=== PATIENT | male | born 1995 | race American Indian/Alaskan Native ===

== ENCOUNTER 2018-10-16 11:31 | Emergency (ER) | payer SELFPAY ==
[2018-10-16 11:36] VITALS: BP 106/63
--- NOTE | 2018-10-16 11:39 | Event Note ---
ED Screening Note Date of service: 10/16/18 Time: 11:36 ED Screening Note: 23 y/o male comes in c/o abd pain times 3-4 days. Admits to N/V no diarrhea. Goes by Margarita. This initial assessment/diagnostic orders/clinical plan/treatment(s) is/are subject to change based on patients health status, clinical progression and re- assessment by fellow clinical providers in the ED. Further treatment and workup at subsequent clinical providers discretion. Patient/guardian urged not to elope from the ED as their condition may be serious if not clinically assessed and managed. Initial orders include:
[2018-10-16] MEDS ORDERED: NACL 0.9% 1000 ML 1,000 ML IV ONE (11:45)
[2018-10-16] MEDS ORDERED: ZOFRAN IV ONE (11:45)
[2018-10-16] MEDS ORDERED: MORPHINE IV ONE (11:45)
[2018-10-16 11:57] LABS: Basophils # (Auto) 0.1 K/mm3 (0.0-0.1); Basophils % (Auto) 2.1 % (0.0-1.8); Eosinophils % (Auto) 0.7 % (0.0-4.3); Hematocrit 40.7 % (35.5-45.6); Hemoglobin 14.1 gm/dl (11.8-15.2); Lymphocytes # (Auto) 0.9 K/mm3 (1.2-5.4); Lymphocytes % (Auto) 17.3 % (13.4-35.0); Mean Corpuscular HGB Conc 35 % (32-34); Mean Corpuscular Hemoglobin 33 pg (28-32); Mean Corpuscular Volume 94 fl (84-94); Monocytes # (Auto) 0.7 K/mm3 (0.0-0.8); Monocytes % (Auto) 13.9 % (0.0-7.3); Platelet Count 165 K/mm3 (140-440); Red Blood Count 4.34 M/mm3 (3.65-5.03); Red Cell Distribution Width 12.7 % (13.2-15.2)
[2018-10-16 12:15] LABS: Bilirubin,Urine NEG (Negative); Blood,Urine NEG (Negative); Color,Urine Yellow (Yellow); Mucus,Urine FEW /HPF; Protein,Urine <15 mg/dL mg/dL (Negative); Urobilinogen,Urine < 2.0 mg/dL (<2.0)
[2018-10-16 12:23] LABS: Alanine Aminotransferase 641 units/L (7-56); BUN/Creatinine Ratio 14; Blood Urea Nitrogen 10 mg/dL (9-20); Calcium 8.8 mg/dL (8.4-10.2); Hemolysis Index 8; Lipase 16 units/L (13-60)
--- NOTE | 2018-10-16 13:55 | Emergency Department Report ---
ED Abdominal Pain HPI - General Chief Complaint: Abdominal Pain Stated Complaint: ABDOMINAL PAIN Time Seen by Provider: 10/16/18 11:44 Source: patient Mode of arrival: Ambulatory Limitations: No Limitations - History of Present Illness Initial Comments: This is a 23-year-old male nontoxic, well nourished in appearance, no acute signs of distress presents to the ED with c/o of nausea and vomiting and abdominal pain 1 week. Patient describes vomiting as food content and yellow gastric acid. Patient describes abdominal pain as cramping and aching with level of 8/10 diffuse. Patient denies chest pain, short of breath, fever, chills, headache, stiff neck, numbness or tingling. Patient denies any diarrhea or constipation. Patient denies any recent travels. Patient stated he is on a hormonal therapy from [place] that is not FDA approved. Patient denies name of the hormonal therapy. Patient denies any allergies to significant past medical history. MD Complaint: abdominal pain -: week(s) (1) Location: diffuse Radiation: none Migration to: no migration Severity: moderate Severity scale (0 -10): 8 Quality: cramping, aching Consistency: constant Improves With: nothing Worsens With: nothing Associated Symptoms: nausea, vomiting. denies: diarrhea, fever, chills, constipation, dysuria, hematemesis, hematochezia, melena, hematuria, anorexia, syncope - Related Data Previous Rx's Medication Instructions Recorded Last Taken Type Ondansetron [Zofran Odt] 4 mg PO Q8HR PRN #20 tab.rapdis 10/16/18 Unknown Rx Allergies Allergy/AdvReac Type Severity Reaction Status Date / Time No Known Allergies Allergy Verified 10/16/18 11:36 ED Review of Systems ROS: Stated complaint: ABDOMINAL PAIN Other details as noted in HPI Constitutional: denies: chills, fever Eyes: denies: eye pain, eye discharge, vision change ENT: denies: ear pain, throat pain Respiratory: denies: cough, shortness of breath, wheezing Cardiovascular: denies: chest pain, palpitations Endocrine: no symptoms reported Gastrointestinal: abdominal pain, nausea, vomiting. denies: diarrhea Genitourinary: denies: urgency, dysuria Musculoskeletal: denies: back pain, joint swelling, arthralgia Skin: denies: rash, lesions Neurological: denies: headache, weakness, paresthesias Psychiatric: denies: anxiety, depression Hematological/Lymphatic: denies: easy bleeding, easy bruising ED Past Medical Hx - Past Medical History Previous Medical History?: No - Surgical History Past Surgical History?: No - Social History Smoking Status: Never Smoker Substance Use Type: None - Medications Home Medications: Home Medications Medication Instructions Recorded Confirmed Last Taken Type Ondansetron [Zofran Odt] 4 mg PO Q8HR PRN #20 tab.rapdis 10/16/18 Unknown Rx ED Physical Exam - General Limitations: No Limitations General appearance: alert, in no apparent distress - Head Head exam: Present: atraumatic, normocephalic - Neck Neck exam: Present: normal inspection, full ROM. Absent: tenderness, meningismus, lymphadenopathy - Respiratory Respiratory exam: Present: normal lung sounds bilaterally. Absent: respiratory distress, wheezes, rales, rhonchi, stridor, chest wall tenderness, accessory muscle use, decreased breath sounds, prolonged expiratory - Cardiovascular Cardiovascular Exam: Present: regular rate, normal rhythm, normal heart sounds. Absent: bradycardia, tachycardia, irregular rhythm, systolic murmur, diastolic murmur, rubs, gallop - GI/Abdominal GI/Abdominal exam: Present: soft, tenderness (diffuse), normal bowel sounds. Absent: distended, guarding, rebound, rigid, diminished bowel sounds - Expanded GI/Abdominal Exam Expanded GI/Abdominal exam: Absent: psoas sign, Fay's sign, Rovsing's sign, tenderness at Mcburney's Point, ascites - Extremities Exam Extremities exam: Present: normal inspection, full ROM, normal capillary refill. Absent: tenderness - Back Exam Back exam: Present: normal inspection, full ROM. Absent: tenderness, CVA tenderness (R), CVA tenderness (L), muscle spasm, paraspinal tenderness, vertebral tenderness, rash noted - Neurological Exam Neurological exam: Present: alert, oriented X3, normal gait - Psychiatric Psychiatric exam: Present: normal affect, normal mood - Skin Skin exam: Present: warm, dry, intact, normal color. Absent: rash ED Course Vital Signs 10/16/18 10/16/18 10/16/18 11:35 12:33 13:03 Temperature 98.5 F Pulse Rate 80 Respiratory 18 18 18 Rate Blood Pressure 106/63 O2 Sat by Pulse 99 Oximetry - Reevaluation(s) Reevaluation #1: 10/16/18 13:56 Patient is speaking in full sentences with no signs of distress noted. - Consultations Consultation #1: 10/16/18 13:56 Patient has been consulted with Janene Jovel about patient history, physical exam, and labs and agrees to consult with Dr. Lawton (hospitalist) for possible admission due to acute hepatitis. CT scan is currently pending. Consultation #2: 10/16/18 15:31 Patient has been consulted with Dr. Lawton (hospitalist) about patient history, physical exam, and labs/CT results and stated patient can be discharged with follow-up. Patient was also discussed with Dr. Goodman which agrees to the ED plan of care with discharge instructions. ED Medical Decision Making - Lab Data Result diagrams: 10/16/18 11:43 10/16/18 11:43 - Medical Decision Making This is a 23-year-old male that presents with nausea and vomiting with abdominal pain and positive hepatitis A. Patient is stable and was examined by me. There is no abdominal tenderness. Negative signs of symptoms of appendicitis. Labs obtained. UA obtained. CT of abdomen obtained and dictated by the radiologist. Patient is notified of the report with no questions noted by the patient. Vital signs are stable prior to discharge. Patient received medical treatment in the ED which patient stated symptoms has resovled and subsided. Was instructed note to operate any machinery due to possible drowsiness and stated someone will drive the patient home. A by mouth challenge has been obtained and patient tolerated well with no nausea vomiting. Patient was consulted with Dr. Goodman and Dr. Lawton. Patient was also instructed to Follow-up with a primary care doctor in 3-5 days or if symptoms worsen and continue return to emergency room as soon as possible. At time of discharge, the patient does not seem toxic or ill in appearance. No acute signs of distress noted. Patient agrees to dischar ge treatment plan of care. No further questions noted by the patient. Critical care attestation.: If time is entered above; I have spent that time in minutes in the direct care of this critically ill patient, excluding procedure time. ED Disposition Clinical Impression: Nausea vomiting and diarrhea Abdominal pain Qualifiers: Abdominal location: generalized Qualified Code(s): R10.84 - Generalized abdominal pain Hepatitis A Qualifiers: Hepatic coma status: without hepatic coma Qualified Code(s): B15.9 - Hepatitis A without hepatic coma Disposition: - TO HOME OR SELFCARE Is pt being admited?: No Does the pt Need Aspirin: No Condition: Stable Instructions: Acute Nausea and Vomiting (ED), Abdominal Pain (ED), Viral Hepatitis A (ED) Additional Instructions: Follow-up with a primary care and supervisor grower doctor in 2-3 days or if symptoms worsen and continue return to emergency room as soon as possible. Increased rest, hydration, and take Motrin/Tylenol as prescribed for fever episode. Prescriptions: Ondansetron [Zofran Odt] 4 mg PO Q8HR PRN #20 tab.rapdis PRN Reason: Nausea Referrals: [place] SHELBY VILLANUEVA MD [Primary Care Provider] - 3-5 Days PRIMARY MD DEREK [Referring] - 3-5 Days RAMON PARK MD [Staff Physician] - 3-5 Days [facility] [Outside] - 3-5 Days [facility] [Outside] - 3-5 Days Forms: Work/School Release Form(ED)
[2018-10-16 14:50] LABS: Hepatitis A Antibody IgM Reactive (NonReactive); Hepatitis B Core IgM Non-Reactive (NonReactive); Hepatitis C Virus Antibody Non-Reactive (NonReactive)
--- NOTE | 2018-10-16 14:53 | Cat Scan Report ---
CT of the abdomen and pelvis with contrast INDICATION: Mid abdominal pain x4 days COMPARISON: None FINDINGS: The lung bases are clear. The liver, spleen, pancreas, adrenal glands and kidneys show no a bnormalities. No definite gallbladder or biliary tree abnormality. No fluid or adenopathy in the uppe r abdomen. No gastric wall thickening. CT of the pelvis shows a normal appendix. There is minimal free pelvic fluid. No diverticulosis or di verticulitis. No colitis or enteritis. Prostate is not enlarged. No pelvic or inguinal adenopathy. No significant skeletal lesion. IMPRESSION: Minimal pelvic fluid. Otherwise negative study. Automated exposure control was utilized to diminish radiation dose. Signer Name: Channing Fowler MD Signed: 10/16/2018 2:49 PM Workstation Name: [id number]
[2018-10-16 15:13] LABS: Hepatitis B Surface Antigen Non-Reactive (Negative)
== END 2018-10-16 15:55 | disposition home or self-care (01) ==
LOC: ED 11:31
DX: B15.9 Hepatitis A without hepatic coma (principal); Z91.011 Allergy to milk products
CPT/HCPCS: 36415; 74177; 80053; 80074; 81001; 83690; 85025; 96361; 96374; 96375; 99284; J2270; J2405; J7030; Q9967

== ENCOUNTER 2018-10-18 17:07 | Inpatient (IN) | payer OTHER ==
[2018-10-18 18:07] LABS: Basophils % (Auto) 0.4 % (0.0-1.8); Hematocrit 43.2 % (35.5-45.6); Hemoglobin 15.2 gm/dl (11.8-15.2); Lymphocytes # (Auto) 1.3 K/mm3 (1.2-5.4); Lymphocytes % (Auto) 18.9 % (13.4-35.0); Mean Corpuscular HGB Conc 35 % (32-34); Mean Corpuscular Volume 92 fl (84-94); Monocytes % (Auto) 14.5 % (0.0-7.3); Platelet Count 187 K/mm3 (140-440); Red Blood Count 4.72 M/mm3 (3.65-5.03)
[2018-10-18 18:21] LABS: Albumin 4.4 g/dL (3.9-5); BUN/Creatinine Ratio 23; Bilirubin,Direct 2.2 mg/dL (0-0.2); Blood Urea Nitrogen 14 mg/dL (9-20); Calcium 9.1 mg/dL (8.4-10.2); Hemolysis Index 4
[2018-10-18] MEDS ORDERED: ZOFRAN IV ONE (18:22)
[2018-10-18] MEDS ORDERED: NACL 0.9% 1000 ML 1,000 ML IV ONE ×3 (18:22→22:50)
[2018-10-18 18:38] LABS: Bilirubin,Urine SM (Negative); Blood,Urine NEG (Negative); Color,Urine Amber (Yellow); Mucus,Urine 3+ /HPF
[2018-10-18 18:43] LABS: Alanine Aminotransferase 6764 units/L (7-56)
[2018-10-18 18:50] LABS: Ictotest,Urine Negative (Negative)
--- NOTE | 2018-10-18 19:43 | Emergency Department Report ---
HPI - General Chief Complaint: Nausea/Vomiting/Diarrhea Time Seen by Provider: 10/18/18 18:21 - HPI HPI: Mr Contreras is a 23-year-old male who was seen here 2 days ago with right upper quadrant pain. He was discharged with a new diagnosis of hepatitis A and instructed to follow-up. However, the patient's symptoms of cotton worse over the last 2 days and he is presented back to the ER. He is complaining of right upper quadrant pain, nausea and vomiting, and bloody vomitus. On admission patient was tachycardic with a heart rate of 102. Patient was actively vomiting. PMH hep A - just diagnosed 2 days ago prior to this a healthy child; UTD on immunizations HIV negative approx 3 months ago PSH none Current Medications none- denies hormone treatment; however, review of EMR reveals he told prior MD he was taking hormones from [place] was given prn zofran on dc Social Lives in [place] with partner. From [place]. Homosexual. drugs- denies alcohol- denies tobacco- denies Mother and father are alive and well and live in [place] ED Past Medical Hx - Past Medical History Previous Medical History?: Yes Additional medical history: hep a - Surgical History Past Surgical History?: No - Family History Family history: no significant - Social History Smoking Status: Never Smoker Substance Use Type: None - Medications Home Medications: Home Medications Medication Instructions Recorded Confirmed Last Taken Type Ondansetron [Zofran Odt] 4 mg PO Q8HR PRN #20 tab.rapdis 10/16/18 Unknown Rx ED Review of Systems ROS: Stated complaint: VOMITING/HEP A/DEHYDRATED Other details as noted in HPI Comment: All other systems reviewed and negative Gastrointestinal: as per HPI, abdominal pain, nausea, vomiting Physical Exam - Physical Exam Vital Signs: Vital Signs 10/18/18 17:21 Temperature 97.9 F Pulse Rate 102 H Respiratory 18 Rate Blood Pressure 114/66 O2 Sat by Pulse 96 Oximetry Physical Exam: born male and identifies as female alert and oriented no focal def S1S2 no murmur or rub lungs diminished bilateral bases liver palpable; firm to palpation no jaundice on exam; pt states urine is "funny color" no edema DP plus 2 bilateral ED Course Vital Signs 10/18/18 17:21 Temperature 97.9 F Pulse Rate 102 H Respiratory 18 Rate Blood Pressure 114/66 O2 Sat by Pulse 96 Oximetry ED Medical Decision Making - Lab Data Result diagrams: 10/18/18 17:25 10/18/18 17:25 - Radiology Data Radiology results: report reviewed, image reviewed - Medical Decision Making Labs 10/18/18 10/18/18 10/18/18 17:25 17:25 18:00 WBC 7.1 RBC 4.72 Hgb 15.2 Hct 43.2 MCV 92 MCH 32 MCHC 35 H RDW 13.0 L Plt Count 187 Lymph % (Auto) 18.9 [place] % (Auto) 14.5 H Eos % (Auto) 0.0 Baso % (Auto) 0.4 Lymph # 1.3 [place] # 1.0 H Eos # 0.0 Baso # 0.0 Seg Neutrophils % 66.2 Seg Neutrophils # 4.7 PT INR APTT Sodium 138 Potassium 3.5 L Chloride 99.0 Carbon Dioxide 22 Anion Gap 21 BUN 14 Creatinine 0.6 L Estimated GFR > 60 BUN/Creatinine Ratio 23 Glucose 107 H Calcium 9.1 Total Bilirubin 2.90 H Direct Bilirubin 2.2 H Indirect Bilirubin 0.7 AST 6160 H ALT 6764 H Alkaline Phosphatase 111 Ammonia Total Protein 7.7 Albumin 4.4 Albumin/Globulin Ratio 1.3 Lipase 17 HCG, Quant Urine Color Negar Urine Turbidity Slightly-cloudy Urine pH 6.0 Ur Specific [place] 1.021 Urine Protein 100 mg/dl Urine Glucose (UA) Neg Urine Ketones 20 Urine Blood Neg Urine Nitrite Neg Urine Bilirubin Sm Urine Ictotest Negative Urine Urobilinogen 4.0 Ur Leukocyte Esterase Neg Urine WBC (Auto) 2.0 Urine RBC (Auto) 2.0 U Epithel Cells (Auto) 10.0 Urine Mucus 3+ 10/18/18 10/18/18 10/18/18 20:25 20:25 20:25 WBC RBC Hgb Hct MCV MCH MCHC RDW Plt Count Lymph % (Auto) [place] % (Auto) Eos % (Auto) Baso % (Auto) Lymph # [place] # Eos # Baso # Seg Neutrophils % Seg Neutrophils # PT 23.1 H INR 2.10 H APTT 28.4 Sodium Potassium Chloride Carbon Dioxide Anion Gap BUN Creatinine Estimated GFR BUN/Creatinine Ratio Glucose Calcium Total Bilirubin Direct Bilirubin Indirect Bilirubin AST ALT Alkaline Phosphatase Ammonia 46.0 Total Protein Albumin Albumin/Globulin Ratio Lipase HCG, Quant < 2 H Urine Color Urine Turbidity Urine pH Ur Specific [place] Urine Protein Urine Glucose (UA) Urine Ketones Urine Blood Urine Nitrite Urine Bilirubin Urine Ictotest Urine Urobilinogen Ur Leukocyte Esterase Urine WBC (Auto) Urine RBC (Auto) U Epithel Cells (Auto) Urine Mucus Vital Signs 10/18/18 17:21 Temperature 97.9 F Pulse Rate 102 H Respiratory 18 Rate Blood Pressure 114/66 O2 Sat by Pulse 96 Oximetry labs noted- inc LFTs in 48 hours ua noted given 2L NS, riki has been actively vomiting Dr Mcdermott aware of pt presentation 2139 CT noted [address] Elam- she requested I call ID. ID paged [id number] DR ELAM CALLED ER. WANTS GI CALLED FOR EVAL. 2049 DISCUSSED WITH GI- Dr Hargrove- they will follow pt in AM DISCUSSED WITH ID- Dr Linton- will follow in AM [employer] P[facility] 0 [place] has returned call Dr Hernandez, hepatatology will evaluate the patient. There is no emergent need for transfer; but pt will be transferred when a bed becomes available in Surgical ICU. The attending will be Dr Soraya Sterling. [place] transfer service will call [facility] ICU in AM to update on bed availability. [place] Transfer center Cherelle Watson [phone]. [address] Elam updated- pt to be admitted here with eventual transfer; no definitive time a bed will become available 0045 Pt continue to have nausea and vomiting 0.25 IV haldol given. Pt has been updated on plan of care. awaiting inpatient orders from Dr Elam 0050 UDS pending- note sent p Morphine given for pain - Differential Diagnosis hep A ro liver failure Critical care attestation.: If time is entered above; I have spent that time in minutes in the direct care of this critically ill patient, excluding procedure time. ED Disposition Clinical Impression: Hepatitis A, Nausea vomiting and diarrhea, Abdominal pain Disposition: 09 OP ADMIT IP TO THIS HOSP Is pt being admited?: Yes Condition: Serious Time of Disposition: 21:41
[2018-10-18] MEDS ORDERED: MORPHINE IV ONE (20:20)
[2018-10-18 21:07] LABS: INR 2.1 (0.87-1.13)
[2018-10-18 21:08] LABS: Partial Thromboplastin Time 28.4 Sec. (24.2-36.6)
[2018-10-18] MEDS ORDERED: ZOFRAN ONE (21:08)
--- NOTE | 2018-10-18 21:59 | Cat Scan Report ---
CT ABDOMEN AND PELVIS WITH CONTRAST HISTORY: Right-sided abdominal pain. COMPARISON: None TECHNIQUE: Routine abdominal and pelvic CT exam performed following intravenous contrast administrat ion.. The patient received 1 cc of IV Omnipaque [address] scans at this location are performed using CT dose reduction for ALARA by means of automated exposure control. FINDINGS: CT ABDOMEN: Lung Bases: No significant abnormality. Liver: No significant abnormality. Biliary: No significant abnormality. Spleen: No significant abnormality. Unenlarged. Pancreas: No significant abnormality. Adrenals: No significant abnormality. Kidneys: No significant abnormality. Lymphatics: No lymphadenopathy. Vasculature: No significant abnormality. Bowel/Peritoneum: Nonobstructive bowel. Sigmoid diverticulosis without mesocolonic fat stranding. No free air. No free fluid. Normal appendix. CT PELVIC: : No significant abnormality. Lymphatics: No lymphadenopathy. Osseous Structures: No aggressive appearing osseous lesions. Additional Findings: None IMPRESSION: 1. No acute findings. The appendix is normal. 2. Sigmoid diverticulosis without evidence of diverticulitis. Signer Name: Stiven Rock MD Signed: 10/18/2018 9:55 PM Workstation Name: [id number]
[2018-10-19] MEDS ORDERED: HALDOL IV ONE (00:36)
[2018-10-19 01:04] LABS: Amphetamine Screen,Urine PRESUMPTIVE NEGATIVE; Benzodiazepines Screen,Urine PRESUMPTIVE NEGATIVE; Methadone Screen,Urine PRESUMPTIVE NEGATIVE
[2018-10-19 01:16] LABS: Cannabinoid Screen,Urine PRESUMPTIVE POSITIVE; Cocaine Screen,Urine PRESUMPTIVE POSITIVE; Opiate Screen,Urine PRESUMPTIVE POSITIVE
[2018-10-19] MEDS ORDERED: SODIUM CHLORIDE FLUSH SYRINGE 10 ML IV PRN (01:18)
[2018-10-19] MEDS ORDERED: MORPHINE IV PRN ×2 (01:18→02:44)
[2018-10-19] MEDS ORDERED: ZOFRAN IV PRN (01:18)
[2018-10-19] MEDS ORDERED: TYLENOL PO PRN (01:18)
--- NOTE | 2018-10-19 01:23 | History and Physical Report ---
History of Present Illness History of present illness: 23 year old trans-gender comes to the ER with complaints of RUQ pain that started 3 days ago, sharp, intermittent, no radiation , intensity 5/10, cannot identify exacerbating or relieving factors. Admits to multiple episodes of nausea, vomiting, unable to tolerate oral intake. On HRT, estradiol and aldactone Review of systems Constitutional: no weight loss, chills, fever Ears, eyes, nose, mouth and throat: no nasal congestion, no nasal discharge, no sinus pressure, no vision change, no red eye. Neck: No neck pain or rigidity. Cardiovascular: no palpitations, chest pain Respiratory: no cough, SOB Gastrointestinal: no hematochezia Genitourinary : no frequency , no hematuria Musculoskeletal: no joint swelling or muscle ache Integumentary: no rash, no pruritis Neurological: no parathesias, no focal weakness Endocrine: no cold or heat intolerance, no polyuria or polydipsia Hematologic/Lymphatic: no easy bruising, no easy bleeding, no gland swelling Allergic/Immunologic: no urticaria, no angioedema. PAST MEDICAL HISTORY: None PAST SURGICAL HISTORY:None SOCIAL HISTORY: no alcohol, drugs , tobacco FAMILY HISTORY: Hypertension Medications and Allergies Allergies Allergy/AdvReac Type Severity Reaction Status Date / Time milk Allergy Unknown Verified 10/18/18 17:20 Home Medications Medication Instructions Recorded Confirmed Last Taken Type Ondansetron [Zofran ODT TAB] 4 mg PO Q8HR PRN #20 tab.rapdis 10/16/18 Unknown Rx Pantoprazole [Protonix INJ] 40 mg IV BID vial 10/19/18 Unknown Rx Active Meds: Active Medications Acetaminophen (Tylenol) 650 mg PO Q4H PRN PRN Reason: Pain MILD(1-3)/Fever >100.5/FINK Sodium Chloride (Nacl 0.9% 1000 Ml) 1,000 mls @ 100 mls/hr IV BOLUS ONE Stop: 10/19/18 08:49 Last Admin: 10/19/18 01:02 Dose: 100 mls/hr Documented by: Ondansetron HCl (Zofran) 4 mg IV Q8H PRN PRN Reason: Nausea And Vomiting Sodium Chloride (Sodium Chloride Flush Syringe 10 Ml) 10 ml IV BID GWEN Exam - Physical Exam Narrative exam: General Apperance: The patient lying in bed, breathing comfortable HEENT: Normocephalic, atraumatic. Pupils equally round and reactive to light, EOMI, no sclericterus or JVD or thyromegaly or nodule. , no carotid bruit, mucous membranes moist, no exudate or erythema Chest: S1-S2, regular is rhythm, + breast Lungs: Clear bilaterally, breathing comfortable Abdomen: Positive bowel sounds, soft, non tender nondistended, no organomegaly Extremities no edema, no cyanosis clubbing, Skin: no rash, nodule, warm and dry Neuro: cranial nerves 2-12 intact, speech is fluent, motor/sensory intact - Constitutional Vitals: Temp Pulse Resp BP Pulse Ox 97.9 F 59 L 18 122/54 99 10/18/18 17:21 10/18/18 22:16 10/18/18 22:16 10/18/18 22:16 10/18/18 22:16 Results - Labs CBC & Chem 7: 10/19/18 04:11 10/19/18 07:48 Labs: Abnormal lab results 10/18/18 10/18/18 10/18/18 Range/Units 17:25 17:25 20:25 MCHC 35 H (32-34) % RDW 13.0 L (13.2-15.2) % [place] % (Auto) 14.5 H (0.0-7.3) % [place] # 1.0 H (0.0-0.8) K/mm3 PT 23.1 H (12.2-14.9) Sec. INR 2.10 H (0.87-1.13) Potassium 3.5 L (3.6-5.0) mmol/L Creatinine 0.6 L (0.8-1.5) mg/dL Glucose 107 H (75-100) mg/dL Total Bilirubin 2.90 H (0.1-1.2) mg/dL Direct Bilirubin 2.2 H (0-0.2) mg/dL AST 6160 H (5-40) units/L ALT 6764 H (7-56) units/L HCG, Quant (0-1) mIU/mL 10/18/18 Range/Units 20:25 MCHC (32-34) % RDW (13.2-15.2) % [place] % (Auto) (0.0-7.3) % [place] # (0.0-0.8) K/mm3 PT (12.2-14.9) Sec. 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
[2018-10-19] MEDS ORDERED: NACL 0.9% 1000 ML 1,000 ML IV SCH (02:00)
[2018-10-19] MEDS ORDERED: D50W (25GM) Syringe IV PRN (02:45)
[2018-10-19] MEDS: PROTONIX IV SCH ×2 (02:55→11:30)
[2018-10-19 05:01] LABS: Basophils % (Auto) 0.5 % (0.0-1.8); Hematocrit 40.5 % (35.5-45.6); Hemoglobin 13.8 gm/dl (11.8-15.2); Lymphocytes # (Auto) 1.2 K/mm3 (1.2-5.4); Lymphocytes % (Auto) 19.4 % (13.4-35.0); Mean Corpuscular HGB Conc 34 % (32-34); Mean Corpuscular Volume 95 fl (84-94); Monocytes # (Auto) 0.8 K/mm3 (0.0-0.8); Monocytes % (Auto) 13.5 % (0.0-7.3); Platelet Count 147 K/mm3 (140-440); Red Blood Count 4.28 M/mm3 (3.65-5.03); Red Cell Distribution Width 12.9 % (13.2-15.2)
[2018-10-19 05:08] LABS: INR 2.02 (0.87-1.13)
[2018-10-19 05:21] LABS: Albumin 3.7 g/dL (3.9-5); BUN/Creatinine Ratio 24; Blood Urea Nitrogen 12 mg/dL (9-20); Calcium 8.2 mg/dL (8.4-10.2); Hemolysis Index 5
[2018-10-19 05:34] LABS: Alanine Aminotransferase 5354 units/L (7-56)
[2018-10-19 05:46] LABS: Partial Thromboplastin Time 28.9 Sec. (24.2-36.6)
[2018-10-19 08:16] LABS: INR 2.08 (0.87-1.13); Partial Thromboplastin Time 29.7 Sec. (24.2-36.6)
[2018-10-19 08:33] LABS: Albumin 3.4 g/dL (3.9-5); BUN/Creatinine Ratio 28; Blood Urea Nitrogen 11 mg/dL (9-20); Calcium 8.1 mg/dL (8.4-10.2); Hemolysis Index 12
[2018-10-19 08:46] LABS: Alanine Aminotransferase 5114 units/L (7-56)
[2018-10-19] MEDS ORDERED: SODIUM CHLORIDE FLUSH SYRINGE 10 ML IV SCH (10:00)
[2018-10-19] MEDS ORDERED: VITAMIN K (ADULT ONLY) SUB-Q SCH (10:00)
--- NOTE | 2018-10-19 10:14 | Discharge Summary ---
Providers - Providers Date of Admission: 10/19/18 01:18 Date of discharge: 10/19/18 Attending physician: KIERSTEN CLAROS 10/19/18 00:53 Consult to Physician [CONS] Stat Comment: notified by Kiera in ER Consulting Provider: GHASSAN PALM Physician Instructions: Reason For Exam: abdominal pain 10/19/18 00:54 Consult to Physician [CONS] Stat Comment: Kiera notified in ER Consulting Provider: NISA HERNÁNDEZ Physician Instructions: Reason For Exam: Hep A 10/19/18 01:18 Consult to Physician [CONS] Routine Comment: Consulting Provider: PEMA SUAREZ Physician Instructions: Reason For Exam: cc Primary care physician: [facility], Hospitalization Reason for admission: abdominal pain Condition: Serious Pertinent studies: CT abdomen/pelvis Hospital course: 23 year old trans-gender female comes to the ER with complaints of RUQ pain that started 3 days ago, sharp, intermittent, no radiation , intensity 5/10, cannot identify exacerbating or relieving factors. Admits to multiple episodes of nausea, vomiting, unable to tolerate oral intake. On HRT, estradiol and aldactone. Admitted to ICU, monitored clinically with supportive care. Initiated transfer to [facility] and was accepted. She was transferred to [facility] in stable condition. 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 Pupils equally round and reactive to light, EOMI, no sclericterus or JVD or thyromegaly or nodule. , no carotid bruit, mucous membranes moist, no exudate or erythema Chest: S1-S2, regular is rhythm, + breast Lungs: Clear bilaterally, breathing comfortable Abdomen: Positive bowel sounds, soft, nondistended, no organomegaly Extremities no edema, no cyanosis clubbing, Skin: no rash, nodule, warm and dry Neuro: cranial nerves 2-12 intact, speech is fluent, motor/sensory intact - Constitutional Vitals: Temp Pulse Resp BP Pulse Ox 98.6 F 57 L 18 94/55 98 10/19/18 04:00 10/19/18 09:00 10/19/18 09:00 10/19/18 09:00 10/19/18 09:00 Plan Activity: other (bedrest) Weight Bearing Status: Non-Weight Bearing Diet: regular Follow up with: SHELBY LATIF MD [Primary Care Provider] - 7 Days
--- NOTE | 2018-10-19 10:44 | Gastroenterology Consultation ---
History of Present Illness - Reason for Consult Consult date: 10/19/18 Acute HepA Requesting physician: DEBORAH WHALEN - History of Present Illness 23 year old who identifies as female returns to the ER with complaints of RUQ pain that started 3 days ago, sharp, intermittent, no radiation , intensity 5/10, cannot identify exacerbating or relieving factors. Admits to multiple episodes of nausea, vomiting, unable to tolerate oral intake. Therefore came back to the ER Lives with boyfriend with whom the patient is sexually active, there is an additional roommate as well No foreign travel Social history - denies IVDU PAST MEDICAL HISTORY: None PAST SURGICAL HISTORY:None SOCIAL HISTORY: no alcohol, drugs , tobacco FAMILY HISTORY: Hypertension Medications and Allergies Allergies Allergy/AdvReac Type Severity Reaction Status Date / Time milk Allergy Unknown Verified 10/18/18 17:20 Home Medications Medication Instructions Recorded Confirmed Last Taken Type Ondansetron [Zofran ODT TAB] 4 mg PO Q8HR PRN #20 tab.rapdis 10/16/18 Unknown Rx Pantoprazole [Protonix INJ] 40 mg IV BID vial 10/19/18 Unknown Rx Active Meds: Active Medications Acetaminophen (Tylenol) 650 mg PO Q4H PRN PRN Reason: Pain MILD(1-3)/Fever >100.5/FINK Dextrose (D50w (25gm) Syringe) 50 ml IV PRN PRN PRN Reason: Hypoglycemia Sodium Chloride (Nacl 0.9% 1000 Ml) 1,000 mls @ 100 mls/hr IV DIRECT GWEN Morphine Sulfate (Morphine) 1 mg IV Q6H PRN PRN Reason: Pain, Moderate (4-6) Last Admin: 10/19/18 07:48 Dose: 1 mg Documented by: Ondansetron HCl (Zofran) 4 mg IV Q8H PRN PRN Reason: Nausea And Vomiting Last Admin: 10/19/18 05:14 Dose: 4 mg Documented by: Pantoprazole Sodium (Protonix) 40 mg IV BID GWEN Last Admin: 10/19/18 02:55 Dose: 40 mg Documented by: Phytonadione (Vitamin K (Adult Only)) 5 mg SUB-Q DAILY GWEN Sodium Chloride (Sodium Chloride Flush Syringe 10 Ml) 10 ml IV BID GWEN Sodium Chloride (Sodium Chloride Flush Syringe 10 Ml) 10 ml IV PRN PRN PRN Reason: LINE FLUSH Review of Systems - Review of Systems Constitutional: anorexia, fatigue, weakness, poor appetite Gastrointestinal: nausea, vomiting Exam - Constitutional Vital Signs: Temp Pulse Resp BP Pulse Ox 98.6 F 57 L 18 94/55 98 10/19/18 04:00 10/19/18 09:00 10/19/18 09:00 10/19/18 09:00 10/19/18 09:00 General appearance: no acute distress - EENT Eyes: scleral icterus - Neck Neck: normal ROM - Respiratory Respiratory effort: normal Respiratory: bilateral: CTA - Cardiovascular Rhythm: regular - Gastrointestinal General gastrointestinal: Present: soft, tender - Integumentary Integumentary: Present: dry - Musculoskeletal Musculoskeletal: normal - Neurologic Neurological: alert and oriented x3 - Psychiatric Psychiatric: depressed - Labs CBC & Chem 7: 10/19/18 04:11 10/19/18 07:48 Lab Results: Laboratory Results - last 24 hr 10/18/18 10/18/18 10/18/18 00:37 00:37 17:25 WBC 7.1 RBC 4.72 Hgb 15.2 Hct 43.2 MCV 92 MCH 32 MCHC 35 H RDW 13.0 L Plt Count 187 Lymph % (Auto) 18.9 [place]les % (Auto) 14.5 H Eos % (Auto) 0.0 Baso % (Auto) 0.4 Lymph # 1.3 Nobles # 1.0 H Eos # 0.0 Baso # 0.0 Seg Neutrophils % 66.2 Seg Neutrophils # 4.7 PT INR APTT Sodium Potassium Chloride Carbon Dioxide Anion Gap BUN Creatinine Estimated GFR BUN/Creatinine Ratio Glucose POC Glucose Calcium Total Bilirubin Direct Bilirubin Indirect Bilirubin AST ALT Alkaline Phosphatase Ammonia Total Protein Albumin Albumin/Globulin Ratio Lipase HCG, Quant Urine Color Negar Urine Turbidity Slightly-cloudy Urine pH 6.0 Ur Specific [place] 1.021 Urine Protein 100 mg/dl Urine Glucose (UA) Neg Urine Ketones 20 Urine Blood Neg Urine Nitrite Neg Urine Bilirubin Sm Urine Ictotest Negative Urine Urobilinogen 4.0 Ur Leukocyte Esterase Neg Urine WBC (Auto) 2.0 Urine RBC (Auto) 2.0 U Epithel Cells (Auto) 10.0 Urine Mucus 3+ Urine Opiates Screen Presumptive positive Urine Methadone Screen Presumptive negative Ur Barbiturates Screen Presumptive negative Ur Phencyclidine Scrn Presumptive negative Ur Amphetamines Screen Presumptive negative U Benzodiazepines Scrn Presumptive negative Urine Cocaine Screen Presumptive positive U Marijuana (THC) Screen Presumptive positive Drugs of Abuse Note Disclamer 10/18/18 10/18/18 10/18/18 17:25 20:25 20:25 WBC RBC Hgb Hct MCV MCH MCHC RDW Plt Count Lymph % (Auto) [place] % (Auto) Eos % (Auto) Baso % (Auto) Lymph # [place] # Eos # Baso # Seg Neutrophils % Seg Neutrophils # PT 23.1 H INR 2.10 H APTT 28.4 Sodium 138 Potassium 3.5 L Chloride 99.0 Carbon Dioxide 22 Anion Gap 21 BUN 14 Creatinine 0.6 L Estimated GFR > 60 BUN/Creatinine Ratio 23 Glucose 107 H POC Glucose Calcium 9.1 Total Bilirubin 2.90 H Direct Bilirubin 2.2 H Indirect Bilirubin 0.7 AST 6160 H ALT 6764 H Alkaline Phosphatase 111 Ammonia 46.0 Total Protein 7.7 Albumin 4.4 Albumin/Globulin Ratio 1.3 Lipase 17 HCG, Quant Urine Color Urine Turbidity Urine pH Ur Specific [place] Urine Protein Urine Glucose (UA) Urine Ketones Urine Blood Urine Nitrite Urine Bilirubin Urine Ictotest Urine Urobilinogen Ur Leukocyte Esterase Urine WBC (Auto) Urine RBC (Auto) U Epithel Cells (Auto) Urine Mucus Urine Opiates Screen Urine Methadone Screen Ur Barbiturates Screen Ur Phencyclidine Scrn Ur Amphetamines Screen U Benzodiazepines Scrn Urine Cocaine Screen U Marijuana (THC) Screen Drugs of Abuse Note 10/18/18 10/19/18 10/19/18 20:25 04:11 04:11 WBC 6.1 RBC 4.28 Hgb 13.8 Hct 40.5 MCV 95 H MCH 32 MCHC 34 RDW 12.9 L Plt Count 147 Lymph % (Auto) 19.4 [place] % (Auto) 13.5 H Eos % (Auto) 0.0 Baso % (Auto) 0.5 Lymph # 1.2 Nobles # 0.8 Eos # 0.0 Baso # 0.0 Seg Neutrophils % 66.6 Seg Neutrophils # 4.0 PT 22.4 H INR 2.02 H APTT 28.9 Sodium Potassium Chloride Carbon Dioxide Anion Gap BUN Creatinine Estimated GFR BUN/Creatinine Ratio Glucose POC Glucose Calcium Total Bilirubin Direct Bilirubin Indirect Bilirubin AST ALT Alkaline Phosphatase Ammonia Total Protein Albumin Albumin/Globulin Ratio Lipase HCG, Quant < 2 H Urine Color Urine Turbidity Urine pH Ur Specific [place] Urine Protein Urine Glucose (UA) Urine Ketones Urine Blood Urine Nitrite Urine Bilirubin Urine Ictotest Urine Urobilinogen Ur Leukocyte Esterase Urine WBC (Auto) Urine RBC (Auto) U Epithel Cells (Auto) Urine Mucus Urine Opiates Screen Urine Methadone Screen Ur Barbiturates Screen Ur Phencyclidine Scrn Ur Amphetamines Screen U Benzodiazepines Scrn Urine Cocaine Screen U Marijuana (THC) Screen Drugs of Abuse Note 10/19/18 10/19/18 10/19/18 04:11 05:30 07:48 WBC RBC Hgb Hct MCV MCH MCHC RDW Plt Count Lymph % (Auto) [place] % (Auto) Eos % (Auto) Baso % (Auto) Lymph # [place] # Eos # Baso # Seg Neutrophils % Seg Neutrophils # PT 23.0 H INR 2.08 H APTT 29.7 Sodium 139 Potassium 3.7 Chloride 102.4 Carbon Dioxide 24 Anion Gap 16 BUN 12 Creatinine 0.5 L Estimated GFR > 60 BUN/Creatinine Ratio 24 Glucose 101 H POC Glucose 91 Calcium 8.2 L Total Bilirubin 3.00 H Direct Bilirubin Indirect Bilirubin AST 3898 H ALT 5354 H Alkaline Phosphatase 92 Ammonia Total Protein 6.1 L D Albumin 3.7 L Albumin/Globulin Ratio 1.5 Lipase HCG, Quant Urine Color Urine Turbidity Urine pH Ur Specific [place] Urine Protein Urine Glucose (UA) Urine Ketones Urine Blood Urine Nitrite Urine Bilirubin Urine Ictotest Urine Urobilinogen Ur Leukocyte Esterase Urine WBC (Auto) Urine RBC (Auto) U Epithel Cells (Auto) Urine Mucus Urine Opiates Screen Urine Methadone Screen Ur Barbiturates Screen Ur Phencyclidine Scrn Ur Amphetamines Screen U Benzodiazepines Scrn Urine Cocaine Screen U Marijuana (THC) Screen Drugs of Abuse Note 10/19/18 07:48 WBC RBC Hgb Hct MCV MCH MCHC RDW Plt Count Lymph % (Auto) [place] % (Auto) Eos % (Auto) Baso % (Auto) Lymph # [place] # Eos # Baso # Seg Neutrophils % Seg Neutrophils # PT INR APTT Sodium 137 Potassium 3.5 L Chloride 103.2 Carbon Dioxide 22 Anion Gap 15 BUN 11 Creatinine 0.4 L Estimated GFR > 60 BUN/Creatinine Ratio 28 Glucose 97 POC Glucose Calcium 8.1 L Total Bilirubin 3.00 H Direct Bilirubin Indirect Bilirubin AST 3606 H ALT 5114 H Alkaline Phosphatase 89 Ammonia Total Protein 6.1 L Albumin 3.4 L Albumin/Globulin Ratio 1.3 Lipase HCG, Quant Urine Color Urine Turbidity Urine pH Ur Specific [place] Urine Protein Urine Glucose (UA) Urine Ketones Urine Blood Urine Nitrite Urine Bilirubin Urine Ictotest Urine Urobilinogen Ur Leukocyte Esterase Urine WBC (Auto) Urine RBC (Auto) U Epithel Cells (Auto) Urine Mucus Urine Opiates Screen Urine Methadone Screen Ur Barbiturates Screen Ur Phencyclidine Scrn Ur Amphetamines Screen U Benzodiazepines Scrn Urine Cocaine Screen U Marijuana (THC) Screen Drugs of Abuse Note Assessment and Plan INR Elevated but stable, no encephalopathy, therefore patient with acute liver injury but not progressing into fulminant liver failure. Therefore as long as can closely monitor patient for signs of acute encephalopathy Q3 hours and can monitor LFT and INR [id number], patient would be stable to remain here rather than require transfer to a liver transplant center. However, if INR worsens or patient develops encephalopathy then immediate transfer would be required Patient's sexual partner requires post exposure prophylaxis for hepA, therefore should get HAV vaccine immediately (preferred) or Immunoglobulin. Counselled patient on proper hygienic practices to decrease risk of transmission of HAV - Patient Problems (1) Abdominal pain Status: Acute (2) Hepatitis A Status: Acute (3) Nausea vomiting and diarrhea Status: Acute
[2018-10-19 11:50] LABS: Albumin 3.7 g/dL (3.9-5); Bilirubin,Direct 2.2 mg/dL (0-0.2)
[2018-10-19 12:04] VITALS: BP 108/52
[2018-10-20] MEDS ORDERED: PROTONIX PO SCH (10:00)
== END 2018-10-19 12:00 | disposition short-term general hospital (02) | DRG 441 ==
LOC: ED 17:07 → CC1 10-19 01:18
PROVIDERS: ADMIT Internal Medicine; ATTEND Internal Medicine
DX: B15.9 Hepatitis A without hepatic coma (principal); K72.00 Acute and subacute hepatic failure without coma; D68.4 Acquired coagulation factor deficiency; T38.5X5A Adverse effect of other estrogens and progestogens, initial encounter; F19.10 Other psychoactive substance abuse, uncomplicated; Y92.89 Other specified places as the place of occurrence of the external cause; Z82.49 Family history of ischemic heart disease and other diseases of the circulatory system; Z91.011 Allergy to milk products; Z79.899 Other long term (current) drug therapy
CPT/HCPCS: 36415; 74177; 80053; 80076; 80307; 81001; 82140; 82962; 83690; 84702; 85025; 85610; 85730; 87535; 93005; 93010; G0378; C9113; J1630; J2270; J2405; J3430; J7030; Q9967